=== PATIENT | male | born 1975 | race Caucasian/White ===

== ENCOUNTER 2019-02-04 08:12 | Emergency (ER) | payer MEDICAID ==
[~2019-02-04] VITALS: Ht 172.7 cm; Wt 106.8 kg
[~2019-02-04 08:12] MED LIST: DOXY-200 PO
[2019-02-04 08:49] VITALS: BP 128/79
== END 2019-02-04 08:51 | disposition home or self-care (01) ==
LOC: ER 08:13
DX: Z02.89 Encounter for other administrative examinations (principal); F14.90 Cocaine use, unspecified, uncomplicated; F11.90 Opioid use, unspecified, uncomplicated; Z86.14 Personal history of Methicillin resistant Staphylococcus aureus infection; Z88.0 Allergy status to penicillin; Z79.899 Other long term (current) drug therapy
CPT/HCPCS: 99281; 99283

== ENCOUNTER 2019-04-27 14:13 | Emergency (ER) | payer MEDICAID ==
[~2019-04-27] VITALS: Ht 172.7 cm; Wt 106.8 kg
[~2019-04-27 14:13] MED LIST changes: -DOXY-200 PO; +DOXY-243 PO
[2019-04-27 14:14] VITALS: BP 167/91
[2019-04-27] MEDS ORDERED: TETanus/Pertussis (Acell)/Diphther VAC/PF (Tdap-Adult) 0.5ml syringe IM ONE (14:35)
[2019-04-27] MEDS ORDERED: ketorolac trometh inj. 60 MG/2 ML VIAL IM ONE (14:35)
[2019-04-27] MEDS ORDERED: bacitracin 15gm ointment TP ONE (14:35)
[2019-04-27] MEDS ORDERED: KETO10TA2 PO (14:46)
[2019-04-27] MEDS ORDERED: BACI1PAC3 TOP (14:46)
== END 2019-04-27 15:49 | disposition home or self-care (01) ==
LOC: ER 14:14
DX: T23.252A Burn of second degree of left palm, initial encounter (principal); T20.16XA Burn of first degree of forehead and cheek, initial encounter; T20.17XA Burn of first degree of neck, initial encounter; F14.90 Cocaine use, unspecified, uncomplicated; F11.90 Opioid use, unspecified, uncomplicated; Z88.0 Allergy status to penicillin; Z79.2 Long term (current) use of antibiotics; Z79.899 Other long term (current) drug therapy; Z86.14 Personal history of Methicillin resistant Staphylococcus aureus infection; X19.XXXA Contact with other heat and hot substances, initial encounter; Y93.89 Activity, other specified; Y92.810 Car as the place of occurrence of the external cause; Y99.8 Other external cause status
CPT/HCPCS: 16000; 90471; 90715; 96372; 99284; J1885